=== PATIENT | female | born 1970 | race Caucasian/White ===

== ENCOUNTER 2019-05-12 11:37 | Emergency (ER) | payer BC, SELFPAY ==
[2019-05-12 11:59] VITALS: BP 120/77; PULSE 79; RESP 20; TEMP 37.2; O2SAT 100
--- NOTE | 2019-05-12 12:53 | ED.GENADULT ---
HPI - General Adult General Chief complaint: Upper Respiratory Infection Stated complaint: chest congested/fever/sore throat/ear pn Time Seen by Provider: 05/12/19 12:53 Source: patient and RN notes reviewed Mode of arrival: ambulatory Limitations: no limitations History of Present Illness HPI narrative: 48-year-old female complains of upper respiratory infection, sore throat, hoarseness, facial congestion, and facial pain, bilateral ear pain, and tactile fever for the past 2 weeks. OTC daytime and night time cold medication without relief. Symptoms increased over the past 24 hours with chest congestion and intermittent productive cough (unknown color phlegm per Priscila). No facial swelling. Dry cough. Rhinorrhea and nasal congestion. Sore throat. Pain bilateral. No high fevers, drooling, neck or throat swelling. No chest pain or shortness of breath. Exacerbation factory consist of eating and drinking. Denies nausea, vomiting, and abdominal pain. Tolerating liquids well. Priscila denies being , LMP 1 week ago. Remains active. Some parts of this dictation were generated by voice recognition software and may contain typographical and/or grammatical inaccuracies. Related Data Home Medications Medication Instructions Recorded Confirmed duloxetine 60 mg PO DAILY 05/12/19 05/12/19 Allergies Allergy/AdvReac Type Severity Reaction Status Date / Time ciprofloxacin Allergy Mild N/V Verified 05/12/19 12:10 Sulfa (Sulfonamide Allergy Mild RASH Verified 05/12/19 12:10 Antibiotics) Review of Systems Review of Systems: Narrative: CONSTITUTIONAL: Complains of tactile fever. Denies chills, sweats. EYES: Denies visual changes, redness, discharge. ENT: Complains of rhinorrhea, congestion, facial congestion and pressure, sore throat, bilateral otalgia. CARDIOVASCULAR: Denies chest pain, palpitations, edema. RESPIRATORY: Denies dyspnea, wheezing. Complains of dry cough, chest congestion, intermittent productive cough. GASTROINTESTINAL: Denies abdominal pain, nausea, vomiting, diarrhea. GENITOURINARY: Denies dysuria, hematuria, abnormal discharge. SKIN: Denies rash or itching. MUSCULOSKELETAL: Denies acute back pain, joint pain, or myalgia. NEUROLOGIC: Denies numbness or focal weakness. PSYCHIATRIC: Denies anxiety or depression. All systems reviewed & are unremarkable except as noted in HPI and below. [facility] Past Medical History Medical History (Updated 05/13/19 @ 04:36 by LUI Guardado) Anxiety Depression Surgical History Surgical History (Updated 05/12/19 @ 13:04 by LUI Guardado) No significant past surgical history Social History Social History (Updated 05/12/19 @ 13:04 by LUI Guardado) Smoking status: Never smoker Comments At time of signature, agree with nurse past medical, surgical, social, and family history. There is no relevant family history pertinent to the presenting complaint. Exam Narrative: Exam Narrative: GENERAL: This is a well-nourished, well-developed patient, in no apparent distress. Talks in full sentences and ambulates with steady gait without dyspnea. HEAD: normocephalic, atraumatic. EYES: PERRL. Sclera clear/white. Vision is grossly intact. EARS: External ears normal, auditory canals clear and without drainage, TMs normal without perforation. Hearing grossly intact. NOSE: External nose normal with no obvious nasal discharge, nares with mild redness and enlarge turbinates, no rhinorrhea. SINUSES: Mild-moderate tenderness upon palpation to maxillary and frontal sinuses. THROAT: Mucous membranes moist, posterior pharynx with PND, mild erythema, no exudate, and normal tonsils. No drainage, no concern for Peritonsillar abscess. No drooling, trismus, or neck swelling. NECK: Neck supple, non-tender without lymphadenopathy, masses or thyromegaly. CARDIOVASCULAR: Regular rate and rhythm without murmurs, gallops, or rubs. RESPIRATORY: Clear to auscult
== END 2019-05-12 13:20 | disposition home or self-care (01) ==
PROVIDERS: Emergency Provider Nurse Practitioner Family; PCP Family Medicine
DX: J32.9 Chronic sinusitis, unspecified (principal)
CPT/HCPCS: 87081; 87804; 87880; 99213; G0463

== ENCOUNTER → 2021-04-20 01:34 | Outpatient (CLI) | payer OTHER, SELFPAY ==
[2021-04-21 01:23] LABS: SARS-CoV-2 RNA PCR Negative
== END ==
PROVIDERS: PCP Family Medicine; Visit Provider Family Medicine
DX: R51.9 Headache, unspecified (principal); R09.81 Nasal congestion; Z20.822 Contact with and (suspected) exposure to COVID-19
CPT/HCPCS: C9803; U0003; U0005

== ENCOUNTER 2021-05-15 15:46 | Emergency (ER) | payer OTHER, SELFPAY ==
--- NOTE | 2021-05-15 15:50 | ED.GENADULT ---
HPI - General Adult General Chief complaint: Upper Respiratory Infection Stated complaint: Cough Time Seen by Provider: 05/15/21 15:48 Source: patient Mode of arrival: ambulatory Limitations: no limitations History of Present Illness HPI narrative: 50-year-old female patient presents to the [facility] with complaints of a cough for the past 3 days. Patient states she did take a rapid Covid test today which came back negative. Patient is fully vaccinated against COVID. Patient states she did not receive any of her flu vaccines this year. Patient states she has been coughing up sputum when she coughs and does complain of congestion and runny nose. Patient states she has been feeling fatigued. Denies any nausea, vomiting or diarrhea or fevers. Patient states has been taking [id number] Tylenol Cold and flu Related Data Home Medications Medication Instructions Recorded Confirmed duloxetine 60 mg PO DAILY 05/12/19 05/15/21 Allergies Allergy/AdvReac Type Severity Reaction Status Date / Time Sulfa (Sulfonamide Allergy Mild RASH Verified 05/15/21 16:08 Antibiotics) ciprofloxacin AdvReac Mild N/V Verified 05/15/21 16:08 Review of Systems Review of Systems: CONSTITUTIONAL: Denies fever, chills, or sweats. Positive fatigue EYES: Denies visual changes, redness, or discharge. ENT: Positive rhinorrhea, congestion, sore throat, and right-sided otalgia. CARDIOVASCULAR: Denies chest pain, palpitations, or edema. RESPIRATORY: Positive productive cough, denies dyspnea. GASTROINTESTINAL: Denies abdominal pain, nausea, vomiting, or diarrhea. GENITOURINARY: Denies dysuria or hematuria. SKIN: Denies rash or itching. MUSCULOSKELETAL: Denies back pain, joint pain, or myalgia. NEUROLOGIC: Denies headache, numbness, or weakness. PSYCHIATRIC: Denies anxiety or depression. [facility] Past Medical History Medical History Anxiety Depression Surgical History Surgical History No significant past surgical history Family History Family History (Updated 05/15/21 @ 15:52 by LUI Browning) Other Diabetes mellitus Hypertension Social History Social History Smoking status: Never smoker Comments At the time of my signature I agree with nursing past medical history, surgical, social, and family history. There is no relevant family history pertinent to the presenting complaint. Exam Narrative: GENERAL: Well-appearing, well-nourished, and in no acute distress. HEAD: Normocephalic, atraumatic. EYES: PERRLA and EOMI. ENT: Nares with erythema and edema noted bilaterally, no rhinorrhea or epistaxis. Mucous membranes moist. Posterior pharynx with no erythema, tonsillar lodgment, exudates or lesions present. The right ear does have impacted cerumen present unable to visualize the TM. NECK: Supple. No lymphadenopathy CHEST: Clear to auscultation. No respiratory distress. Patient able talk in clear complete sentences. HEART: Regular rate and rhythm. No murmur heard. Normal peripheral pulses. ABDOMEN: Soft, nontender, nondistended, normal active bowel sounds. EXTREMITIES: Normal range of motion. No edema. SKIN: Warm, dry, no rash. NEURO: No focal deficits. Alert and oriented x3. Course Course Level of Care: Express Care Visit Reevaluation(s) Reevaluation #1: Reevaluated patient notified her that her influenza test today is negative. We will send the PCR COVID off to the lab and she should have results in the next 24 to 48 hours. Patient verbalized understanding denies any other questions or concerns at this time Date: 05/15/21 Time: 16:34 Vital Signs Vital signs: Vital Signs Temperature 36.6 C 05/15/21 15:58 Pulse Rate 98 05/15/21 15:58 Respiratory Rate 18 05/15/21 15:58 Blood Pressure 143/85 H 05/15/21 15:58 Pulse Oximetry 100 05/15/21 15:58
[2021-05-15 15:58] VITALS: BP 143/85; PULSE 98; RESP 18; TEMP 36.6; O2SAT 100
[2021-05-16 18:01] LABS: SARS-CoV-2 RNA PCR Negative
== END 2021-05-15 16:35 | disposition home or self-care (01) ==
PROVIDERS: Emergency Provider Nurse Practitioner Family; PCP Family Medicine
DX: R05.9 Cough, unspecified (principal); J34.89 Other specified disorders of nose and nasal sinuses; Z20.822 Contact with and (suspected) exposure to COVID-19; F41.9 Anxiety disorder, unspecified; F32.A Depression, unspecified
CPT/HCPCS: 87804; 99213; C9803; G0463; U0003; U0005

== ENCOUNTER 2023-09-22 19:16 | Emergency (ER) | payer OTHER, SELFPAY ==
[2023-09-22 19:30] VITALS: BP 135/79; PULSE 84; RESP 18; TEMP 37; O2SAT 99
--- NOTE | 2023-09-22 20:00 | ED.SKABFB ---
HPI - Skin/Abscess/Foreign Bdy General Chief complaint: Skin/Abscess/Foreign Body Stated complaint: Bug Bite On Arm Time Seen by Provider: 09/22/23 19:53 Source: patient and RN notes reviewed Mode of arrival: ambulatory Limitations: no limitations History of Present Illness HPI narrative: Patient presents today complaining of insect bites to the right posterior upper arm x2 days with severe itching. Now the area is red, warm, and hard. She has been applying cortisone cream without much relief. Related Data Home Medications Medication Instructions Recorded Confirmed duloxetine 60 mg capsule,delayed 60 mg PO DAILY 05/12/19 09/22/23 release estradiol-norethindrone acet 1 1 tablet PO DAILY 07/17/22 09/22/23 mg-0.5 mg tablet tirzepatide (weight loss) 2.5 2.5 mg subcut WEEKLY 09/22/23 09/22/23 mg/0.5 mL subcutaneous pen injector (Zepbound) Allergies Allergy/AdvReac Type Severity Reaction Status Date / Time ciprofloxacin AdvReac Mild Nausea and Verified 09/22/23 19:33 Vomiting Sulfa (Sulfonamide AdvReac Mild RASH Verified 09/22/23 19:33 Antibiotics) Review of Systems Review of Systems: CONSTITUTIONAL: Denies body aches, fever, chills, or sweats. EYES: Denies visual changes, redness, or discharge. ENT: Denies rhinorrhea, congestion, sore throat, or otalgia. CARDIOVASCULAR: Denies chest pain, palpitations, or edema. RESPIRATORY: Denies cough or dyspnea. GASTROINTESTINAL: Denies abdominal pain, nausea, vomiting, or diarrhea. GENITOURINARY: Denies dysuria or hematuria. SKIN: + insect bites MUSCULOSKELETAL: Denies back pain, joint pain, or myalgia. NEUROLOGIC: Denies headache, numbness, tingling, or weakness. PSYCH: Denies depression or anxiety. [facility] Past Medical History Medical History Anxiety Depression Granuloma annulare Surgical History Surgical History No significant past surgical history Family History Family History Other Diabetes mellitus Hypertension Social History Social History Smoking packs per day: 0.5 Smoking cigarettes per day: 10.0 Smoking status: Former smoker Tobacco type: cigarettes Second hand tobacco smoke exposure: No Alcohol intake: never Substance use: never Substance use type: does not use Lack of Transportation: No Lack of Food: Never True Current Housing: I Have Housing Concerned About Future Housing: No Difficulty Paying Gas/Electric Bills: No Difficulty Paying for Meds: No Currently Unemployed: No Difficulty w/ Childcare or Family Care: No Living arrangements: with family Occupation/Education: occupation Gender identity (if verbalized by the patient): Female Sexual Orientation (if Verbalized by the Patient): Straight or Heterosexual Spiritual care concerns: No Comments At time of signature, I have reviewed and agree with nursing past medical, surgical, social and family history unless otherwise noted. Please see nursing chart for further information. There is no relevant family history pertinent to the presenting complaint Exam Narrative: GENERAL: Well-appearing, well-nourished, and in no acute distress. HEAD: Normocephalic, atraumatic. EYES: EOMI. No redness or drainage. Conjunctivae normal. ENT: Mucous membranes pink and moist. NECK: Normal AROM. CHEST: No respiratory distress. EXTREMITIES: Normal range of motion. No edema. SKIN: Warm, dry, no rash. Capillary refill normal. Normal skin turgor. 7 insect bites to the posterior right upper arm with surrounding erythema and induration that has coalesced together. No fluctuance. Increased warmth to the area. No edema. NEURO: No focal deficits. Alert and oriented x3. Gait steady. PSYCH: Normal affect. No s
== END 2023-09-22 20:08 | disposition home or self-care (01) ==
PROVIDERS: Emergency Provider Nurse Practitioner; PCP Family Medicine
DX: L03.113 Cellulitis of right upper limb (principal); S40.861A Insect bite (nonvenomous) of right upper arm, initial encounter; W57.XXXA Bitten or stung by nonvenomous insect and other nonvenomous arthropods, initial encounter; Z87.891 Personal history of nicotine dependence
CPT/HCPCS: 99213; G0463